=== PATIENT | female | born 1975 | race Hispanic/Latino ===

== ENCOUNTER 2017-11-19 15:09 | Inpatient (IN) | payer MEDICAID ==
--- NOTE | 2017-11-19 17:41 | C.PDOC ---
History Of Present Illness 42 y/o female presents to the ED requesting detox for heroin. Admits she usually sniffs 10-15 bags per day. Last use was 4:30am today. She denies any other drug use. Patient smokes 1-1.5 PPD of cigarettes. Also reports swelling in both legs, but admits to not taking her diuretic for over 1 week. Time Seen by Provider: 11/19/17 16:31 Chief Complaint (Nursing): Substance Abuse History Per: Patient History/Exam Limitations: no limitations Onset/Duration Of Symptoms: Days Current Symptoms Are (Timing): Still Present Suicide/Self Injury Attempted (Context): None Modifying Factor(s): Other (Heroin) Past Medical History Reviewed: Historical Data, Nursing Documentation, Vital Signs Vital Signs: Last Vital Signs Temp 98.3 F 11/19/17 19:17 Pulse 66 11/19/17 19:17 Resp 18 11/19/17 19:17 BP 130/92 H 11/19/17 19:17 Pulse Ox 99 11/19/17 19:50 - Medical History PMH: Asthma, Depression, Hypothyroidism Family History: States: No Known Family Hx - Social History Hx Alcohol Use: No Hx Substance Use: Yes - Immunization History Hx Tetanus Toxoid Vaccination: Yes Hx Influenza Vaccination: Yes Hx Pneumococcal Vaccination: No Review Of Systems Except As Marked, All Systems Reviewed And Found Negative. Constitutional: Negative for: Fever, Other (tremors) Respiratory: Negative for: Shortness of Breath Gastrointestinal: Negative for: Nausea, Vomiting Psych: Positive for: Other (substance abuse). Negative for: Suicidal ideation ( or homicidal ideation) Physical Exam - Physical Exam Appears: Non-toxic, No Acute Distress, Other (Morbidly obese) Skin: Normal Color, Warm, No Rash Head: Atraumatic, Normacephalic Eye(s): bilateral: Normal Inspection Oral Mucosa: Moist Neck: Normal ROM, Supple Chest: Symmetrical Cardiovascular: Rhythm Regular, No Murmur Respiratory: No Accessory Muscle Use, Other (coarse breath sounds bilaterally with good air entry) Gastrointestinal/Abdominal: Soft, No Tenderness, No Distention Extremity: Normal ROM, No Calf Tenderness, Capillary Refill (< 2 sec), No Deformity, Swelling (1+ lower extremity edema bilaterally) Pulses: Left Dorsalis Pedis: Normal, Right Dorsalis Pedis: Normal Neurological/Psych: Oriented x3, Normal Speech, Normal Cranial Nerves, Other ( No focal deficits) Gait: Steady ED Course And Treatment - Laboratory Results Result Diagrams: 11/19/17 17:44 11/19/17 17:44 O2 Sat by Pulse Oximetry: 99 (RA) Pulse Ox Interpretation: Normal Medical Decision Making Medical Decision Making: Impression: 42 year old with heroin abuse, prescreened for detox Plan: --CBC --CMP --Alcohol serum --Urine drug screen --Urine HCG --Urinalysis --Motrin 600 mg PO dairy farmworker notified of patient's case, will assist with arranging detox bed placement. 7:00pm - Patient is medically cleared. Discussed with passementerie worker, Dr. Chang accepts patient for detox admission. Disposition Discussed With : Agustin Chang Doctor Will See Patient In The: Hospital Counseled Patient/Family Regarding: Diagnosis - Disposition Disposition: HOSPITALIZED Disposition Time: 18:00 Condition: STABLE - POA Present On Arrival: None - Clinical Impression Clinical Impression: Drug dependence - Scribe Statement The provider has reviewed the documentation as recorded by the Scribe (Dagmar Hannon) Provider Attestation: All medical record entries made by the Scribe were at my direction and personally dictated by me. I have reviewed the chart and agree that the record accurately reflects my personal performance of the history, physical exam, medical decision making, and the department course for this patient. I have also personally directed, reviewed, and agree with the discharge instructions and disposition.
[2017-11-19 17:50] LABS: BASO # 0.1 K/uL (0.0-0.2); BASO % 0.7 % (0.0-2.0); EOS # 0.4 K/uL (0.0-0.7); EOS % 3.2 % (0.0-4.0); HEMOGLOBIN 14.1 g/dL (11.0-16.0); LYMPH # 2.6 K/uL (1.0-4.3); LYMPH % 22.9 % (20.0-40.0); MEAN CELL VOLUME 83.6 fL (81.0-99.0); MEAN CORPUSCULAR HEMOGLOBIN 28.2 pg (27.0-31.0); MEAN CORPUSCULAR HGB CONC 33.8 g/dL (33.0-37.0); MEAN PLATELET VOLUME 7.7 fL (7.2-11.7); MONO # 0.7 K/uL (0.0-0.8); MONO % 5.8 % (0.0-10.0); NEUT # 7.8 K/uL (1.8-7.0); NEUT % 67.4 % (50.0-75.0); NRBC % 0.2 % (0.0-2.0); RBC 4.98 Mil/uL (3.80-5.20); RED CELL DISTRIBUTION WIDTH 15.7 % (11.5-14.5); WHITE BLOOD COUNT 11.5 K/uL (4.8-10.8)
[2017-11-19 18:01] LABS: HCG,QUALITATIVE URINE NEGATIVE (NEGATIVE)
[2017-11-19 18:10] LABS: ALB/GLOB RATIO 1.3 (1.0-2.1); BLOOD UREA NITROGEN 9 mg/dL (7-17); CALCIUM 8.3 mg/dl (8.6-10.4); GFR AFRICAN-AMERICAN > 60; GFR NON-AFRICAN AMERICAN > 60
[2017-11-19 18:11] LABS: ALT/SGPT 32 U/L (9-52); AST/SGOT 16 U/L (14-36)
[2017-11-19 18:15] LABS: BARBITURATES, UR NEGATIVE (NEGATIVE); BENZODIAZEPINES, UR NEGATIVE (NEGATIVE); OPIATES, UR POSITIVE (NEGATIVE); PHENCYCLIDINE, UR NEGATIVE (NEGATIVE)
[2017-11-19 18:30] LABS: PH,URINE 5.5 (5.0-8.0); URINE BILIRUBIN NEGATIVE (NEGATIVE); URINE BLOOD NEGATIVE (NEGATIVE); URINE CLARITY CLEAR (Clear); URINE COLOR YELLOW (YELLOW); URINE GLUCOSE (UA) NEGATIVE (Normal); URINE LEUKOCYTE ESTERASE NEGATIVE Leu/uL (Negative); URINE PROTEIN NEGATIVE (NEGATIVE); URINE UROBILINOGEN N mg/dL (0.2-1.0)
--- NOTE | 2017-11-19 19:08 | PCM.BM ---
Treatment Plan Problems - Problems identified on initial assessmt potential for opiate withdrawal Date Initiated: 11/19/17 Time Initiated: 19:08 Status: Active Treatment assets and liabiliti Patient Liabilities: substance abuse, medical problems - Milieu Protocol Maintain good personal hygiene: daily Encourage regular showers, daily Remind patient to perform daily oral care, daily Assist patient to perform ADL's Conduct patient checks and document Observation sheet: Q15 minutes Maintain personal safety: every shift Educate patient to report safety concerns to staff, every shift Monitor environment for contraband/sharps Medication safety: Monitor for expected outcome, potential side effects: every shift, Assess barriers to learning: every shift, Assess readiness for medication education: every shift
--- NOTE | 2017-11-20 09:42 | PCM.PSYCH ---
Initial Psychiatric Evaluation - Initial Psychiatric Evaluation Type of Admission: Voluntary Legal Status: Capacity Chief Complaint (in patient's own words): "I relapsed" History of Present Illness and Precipitating Events: The patient is seen and chart reviewed, case discussed. This is a 42-year-old female, single with 3 children 2 of them adults , unemployed, living with her boyfriend and son. She reports using 10 bags intranasal heroin again. She says she relapsed 1-2 weeks after she left our unit She had been clean for 3-1/2 years max. Her first use was when she was 21 years old. She used cocaine in the past IV but clean for "many years." Denies alcohol, marijuana and other drugs. However, she smokes 1.5 pack per day cigarettes. She used Suboxone for an methadone from the streets. This is her third detox. She says she was in rehabilitation once at [facility] in 2010. She has anxiety and depressive sxs, no SI. Past psych history: Denies Medical history: Hypertension, diabetes?, Asthma and obesity, hepatitis C ( treated) Family psych history: Her father used cocaine and brother used heroin. Current Medications: Active Medications Generic Name Dose Route Start Last Admin Trade Name Freq PRN Reason Stop Dose Admin Clonidine HCl 0.1 mg 11/19/17 21:58 11/19/17 22:46 Catapres PO 0.1 mg Q8 PRN Administration COWS Score More or Equal to 5 Hydroxyzine HCl 25 mg 11/19/17 23:41 11/19/17 23:47 Atarax PO 25 mg Q6 PRN Administration Anxiety Ibuprofen 600 mg 11/20/17 06:13 Motrin Tab PO Q6 PRN Pain, moderate (4-7) Loperamide HCl 2 mg 11/19/17 22:24 Imodium PO Q8 PRN Diarrhea Methadone HCl 0 mg 11/20/17 10:00 11/20/17 09:32 Methadone PO 11/24/17 09:59 15 mg Q24H JUVENAL Administration Taper Nicotine 1 patch 11/20/17 10:00 11/20/17 09:32 Nicoderm Cq TD 1 patch DAILY JUVENAL Administration Ondansetron HCl 4 mg 11/19/17 22:24 Zofran Tab PO Q8 PRN Nausea/Vomiting Past Psychiatric History - Past Psychiatric History Previous Treatment History: None Pertinent Medical Hx (Current Medical&Sleep Prob, Allergies): Allergies Allergy/AdvReac Type Severity Reaction Status Date / Time No Known Allergies Allergy Verified 11/19/17 15:29 Furosemide [Lasix] 40 mg PO DAILY 11/19/17 Gabapentin 300 mg PO TID 11/19/17 Levothyroxine [Synthroid] 150 mcg PO DAILY 11/19/17 Omeprazole 40 mg PO DAILY 11/19/17 Pentoxifylline 400 mg PO TID 11/19/17 Sertraline [Zoloft] 25 mg PO DAILY 11/19/17 Review of Systems - Neurological Neurological: Tremor - Psychiatric Psychiatric: Abnormal Sleep Pattern, Anxiety, Depression, Difficulty Concentrating, Irritability. absent: Homicidal Ideation, Suicidal Ideation Mental Status Examination - Personal Presentation Personal Presentation: Looks stated age - Affect Affect: Constricted - Motor Activity Motor Activity: Calm - Reliability in Providing Information Reliability in Providing Information: Good - Speech Speech: Organized - Mood Mood: Depressed, Anxious - Formal Thought Process Formal Thought Process: No Impairment - Cognitive Functions Orientation: Person, Place, Situation, Time Sensorium: Alert Attention/Concentration: Attentive Estimate of Intelligence: Average Judgement: Intact, as evidence by: Insight regarding need for hospitalization Memory: Recent intact, as evidence by: Ability to recall events of the day, Remote intact, as evidenced by: Abilit to recall sig. life events - Risk Risk: Withdrawal, Diminished functioning - Strength & Assets Inventory Strength & Assets Inventory: Cooperative - Limitations Limitations: Living alone DSM 5 DX - DSM 5 DSM 5 Diagnosis: Opioid withdrawal Opioid use disorder, severe Depressive d/o - unspecified Tobacco use d/o - severe - Recommended/Plan of Treatment Treatment Recommendations and Plan of Treatment: Methadone detox Zoloft for depression As needed medications Gabapentin for augmentation and anxiety All risks, benefits and alternatives of medications, including no medications, discussed and the patient understood and agreed. Attend groups and activities Supportive therapy and psychoeducation [place] for abstinence CBT for relapse prevention Encourage MAT Refer to rehab or IOP Attend self-help groups as well VT for smoking cessation and patch if needed 34 min Projected ELOS: 4-5 days Prognosis: Good w treatment - Smoking Cessation Smoking Cessation Initiated: Yes
[2017-11-20] MEDS ORDERED: Pantoprazole 20 mg EC Tab PO SCH (10:00)
[2017-11-20] MEDS: Levothyroxine 150 MCG TAB PO SCH (10:30)
[2017-11-20] MEDS: Pantoprazole 20 mg EC Tab PO SCH (10:31)
[2017-11-21] MEDS: Levothyroxine 150 MCG TAB PO SCH (06:45)
[2017-11-21] MEDS: Pantoprazole 20 mg EC Tab PO SCH (09:20)
--- NOTE | 2017-11-21 23:39 | PCM.PYCHPN ---
Psychiatric Progress Note - Psychiatric Progress Note Patient seen today, length of contact: 15 min Patient Chief Complaint: I am still withdrawing.' Problems Identified/Issues Discussed: Patient seen and evaluated, chart reviewed and discussed with the nurse. She reports some improvement in her withdrawal symptoms but still reports anxiety, cramps and sweats. She reports of left leg swelling. Sh denies any AVH or any paranoia. Patient is compliant with medications and denies any side effects. Symptoms are improving but needs more time to stabilize. Support and psychoeducation given. Medication Change: Yes (methadone taper) Medical Record Reviewed: Yes Mental Status Examination - Cognitive Function Orientation: Person, Place, Situation, Time Memory: Intact Attention: WNL Concentration: Poor Association: WNL Fund of Knowledge: Poor - Mood Mood: Depressed, Anxious - Affect Affect: Constricted - Speech Speech: Soft - Formal Thought Process Formal Thought Process: No Impairment - Suicidal Ideation Suicidal Ideation: No - Homicidal Ideation Homicidal Ideation: No Goal/Treatment Plan - Goal/Treatment Plan Need for Continued Stay: Severe depression anxiety, Severe functional impairment Progress Toward Problem(s) and Goals/Treatment Plan: Opioid withdrawal Opioid use disorder, severe Depressive d/o - unspecified Tobacco use d/o - severe Methadone detox Zoloft for depression As needed medications Gabapentin for augmentation and anxiety All risks, benefits and alternatives of medications, including no medications, discussed and the patient understood and agreed. Attend groups and activities Supportive therapy and psychoeducation [place] for abstinence CBT for relapse prevention Encourage MAT Refer to rehab or IOP Attend self-help groups as well [place] for smoking cessation and patch if needed IM consulted for left leg swelling
[2017-11-22] MEDS: Levothyroxine 150 MCG TAB PO SCH (06:01)
[2017-11-22 08:56] LABS: BASO # 0.1 K/uL (0.0-0.2); BASO % 0.7 % (0.0-2.0); EOS # 0.4 K/uL (0.0-0.7); EOS % 4.1 % (0.0-4.0); LYMPH # 2.2 K/uL (1.0-4.3); LYMPH % 24.6 % (20.0-40.0); MEAN CORPUSCULAR HEMOGLOBIN 28.3 pg (27.0-31.0); MEAN CORPUSCULAR HGB CONC 33.7 g/dL (33.0-37.0); MEAN PLATELET VOLUME 7.7 fL (7.2-11.7); MONO # 0.6 K/uL (0.0-0.8); MONO % 6.6 % (0.0-10.0); NEUT # 5.7 K/uL (1.8-7.0); NRBC % 0.2 % (0.0-2.0); RBC 4.92 Mil/uL (3.80-5.20); RED CELL DISTRIBUTION WIDTH 15.5 % (11.5-14.5); WHITE BLOOD COUNT 8.9 K/uL (4.8-10.8)
[2017-11-22 09:11] LABS: ALB/GLOB RATIO 1.2 (1.0-2.1); ALBUMIN 3.8 g/dL (3.5-5.0); ALT/SGPT 27 U/L (9-52); AST/SGOT 14 U/L (14-36); BLOOD UREA NITROGEN 8 mg/dL (7-17); CALCIUM 9.2 mg/dl (8.6-10.4); GFR AFRICAN-AMERICAN > 60; GFR NON-AFRICAN AMERICAN > 60
[2017-11-22] MEDS: Pantoprazole 20 mg EC Tab PO SCH (09:26)
--- NOTE | 2017-11-22 19:46 | CON ---
Copied To: Leroy Harris DO Attending MD: Leroy Harris DO DATE: 11/22/2017 HISTORY OF PRESENT ILLNESS: I was called to the detox unit to see her. She is a 42-year-old white female who I know very well who was requested to detox from heroin. She was sniffing 10 to 15 bags per day, last was 4:30 the other day. She states she smokes 1 to 1-1/2 packs of cigarettes a day. She has also swelling on both her legs. She is also not taking her diuretics for about a week plus now. She is very noncompliant. She is also very morbidly obese. She has depression, asthma, and hypothyroidism. She is also looking to get a surgery, a bypass surgery, so she could lose weight, gastric bypass. She has substance abuse. Her legs have been in pain. There is some test pending for legs. Venous Doppler are pending. She is seen in bed, alert, comfortable, leg pain is persisting, particularly on both lower extremities. She walks okay. No chest pain, no shortness of breath. She wants to get off of heroin. No acute vision or hearing changes, no sore throat, no chest pain, no palpitations, no shortness of breath or cough. No abdominal pain, nausea, or vomiting at this time. Extremities are a little bit achy. She is very swollen in her arms and legs. When questioned how long she has been on her Lasix, said she just started today for the first dose. FAMILY HISTORY: She has hypertension and diabetes in the family. SOCIAL HISTORY: No alcohol, lots of substance abuse. She smokes cigarettes. PHYSICAL EXAMINATION: VITAL SIGNS: She has a 98.3 temp, 66 pulse, 18 respiratory rate, 130/92 blood pressure, 99% O2 sat on room air. HEENT: Head is atraumatic, normocephalic. Extraocular muscles are intact. Throat is moist. SKIN: Warm and dry. Poor turgor. No rashes or ulcers appreciated. HEART: Regular rate. LUNGS: Decreased breath sounds. Clear to auscultation. No wheezes, no rhonchi, no rales at this time. ABDOMEN: Morbidly, morbidly obese and nontender. Positive bowel sounds. No guarding, no rebound. No CVA tenderness. EXTREMITIES: +2 to 3 over 4 pitting edema in bilateral lower extremities, and both her arms are puffy. Definitely, she has not been on her water pill for over a week. NEUROLOGIC: She is alert and oriented x 3. Speech is normal. Cranial nerves are intact, II through XII. She is for the most part medically doing quite well and detoxing from heroin that I could see. She has some test done. She has positive opiates in her urine drug screen. Urine is clean. She is not . Sodium 136, potassium 4.2, BUN 9, creatinine 0.4 sugar 129, calcium 8.3, total bili 0.3, AST is 16, ALT is 32, alk phos 91, total protein 7.2, albumin is 4, globulin 3.2. D-dimer less than 200. She has 11.5 white count, 14.1 hemoglobin, 41.7 hematocrit, with 372,000 platelets. There are electrocardiogram and duplex of the lower extremity pending. She is being seen by Psychiatry. MEDICATIONS: She is currently on Atarax, Catapres, Imodium, Lasix, methadone, Motrin, Neurontin, Nicoderm patch, pentoxifylline, Protonix, Synthroid, Zofran, and Zoloft. ASSESSMENT AND PLAN: We will continue aggressive treatment and care, on detoxification. We will check her legs for venous Doppler. She was very swollen with congestive heart failure, opioid intoxication and abuse, leg pain, she is a smoker, hypothyroid, and asthma and we will follow. We are trying to detox from heroin with leg pain. eLroy Harris DO MTDD
--- NOTE | 2017-11-22 20:01 | PCM.PYCHPN ---
Psychiatric Progress Note - Psychiatric Progress Note Patient seen today, length of contact: 15 min Patient Chief Complaint: I'm feeling much better. Problems Identified/Issues Discussed: Patient seen, chart reviewed, case discussed with the staff. Issues related to illness and treatment were discussed with the patient and staff. Reported compliant with treatment with no adverse affects. Tolerating treatment very well. Calm and cooperative. Mood reported as good. Affect appropriate. Aftercare discussed with the patient. Patient will go to [facility] and also will attend AA meetings after discharge from the hospital. Patient was awake, alert and oriented 3. Denied any delusions, auditory or visual hallucinations, suicidal ideations or homicidal ideations at the time of evaluation. Medical Problems: Diabetes mellitus Hypertension Asthma Hepatitis C Diagnostic Results: Reviewed DSM 5 Symptoms Update: Improving with treatment. Medication Change: No Medical Record Reviewed: Yes Mental Status Examination - Cognitive Function Orientation: Person, Place, Situation, Time Memory: Intact Attention: WNL Concentration: WNL Association: WNL Fund of Knowledge: WN Decription of patient's judgement and insights: Fair - Mood Mood: Neutral - Affect Affect: Other (Appropriate) - Speech Speech: Soft - Formal Thought Process Formal Thought Process: No Impairment Psychotic Thoughts and Behaviors: None - Suicidal Ideation Suicidal Ideation: No - Homicidal Ideation Homicidal Ideation: No Goal/Treatment Plan - Goal/Treatment Plan Need for Continued Stay: Remain at risks for inpatient hospitalization, Discharge may exacerbated symptoms, Severe functional impairment Progress Toward Problem(s) and Goals/Treatment Plan: Patient education. Supportive therapy. CBT for relapse prevention. MRI for abstinence. Continue treatment as before. Patient will go to [facility] and also will attend AA meetings after discharge from the hospital. Estimated Date of D/C: 11/23/17 - Smoking Cessation Smoking Cessation Initiated: Yes
[2017-11-23] MEDS: Levothyroxine 150 MCG TAB PO SCH (06:18)
[2017-11-23 08:13] VITALS: PULSE 78; RESP 20; TEMP 98.3; O2SAT 94
[2017-11-23 09:31] VITALS: BP 127/84
[2017-11-23] MEDS: Pantoprazole 20 mg EC Tab PO SCH (09:32)
--- NOTE | 2017-11-23 14:28 | PN ---
Copied To: Leroy Harris DO Attending MD: Leroy Harris DO DATE: 11/23/2017 SUBJECTIVE: I saw her in the locked down unit for detoxification. She is eating breakfast. She is doing really well. She is eating very well. She has improved with her detox off of oxycodone. MEDICATIONS: She is on Atarax, Catapres, Imodium, Lasix, methadone 5 mg, Motrin, Neurontin, Nicoderm, Pentoxil, Protonix, Synthroid, Zofran, and Zoloft. PHYSICAL EXAMINATION: GENERAL: She is doing much better. She has improved. She is motivated. She wants to get off these bad drugs. VITAL SIGNS: Temp 98.3, pulse 78, blood pressure 121/84, respiratory rate 20, 94 to 96% O2 sat on room air. HEENT: Head is atraumatic and normocephalic. Throat is moist. NECK: Supple. HEART: Regular rate. LUNGS: Decreased breath sounds, but clear to auscultation. ABDOMEN: Morbidly obese, soft, nontender, positive bowel sounds. EXTREMITIES: No edema. LABORATORY DATA: She has 8.9 white count, 14 hemoglobin, 41.4 hematocrit with 342 platelets. Sodium 140, potassium 4.5, BUN is 8, creatinine 0.5, GFR is greater than 60, sugar is 126, calcium is 9.2, phosphorus 3.7, magnesium 1.9, total bili is 0.3, AST is 14, ALT is 27, alk phos 83, total protein 7, albumin is 3.8. Urine screen toxicology showed positive for opiates. ASSESSMENT AND PLAN: I discussed with the psychiatric nurse. She will be discharged today. I will follow up this week in the office. I am very happy with her motivation to get off these bad drugs and she is here for detox from opiates. Leroy Harris DO
--- NOTE | 2017-11-23 15:55 | VASCLAB ---
Date of service: 11/21/2017 PROCEDURE: Lower Extremity Venous Duplex Exam. HISTORY: lower extremity swelling, r/o DVT PRIORS: None. TECHNIQUE: Bilateral common femoral, femoral, popliteal and posterior tibial, peroneal and great saphenous veins were evaluated. Flow was assessed with color Doppler, compressibility, assessment of phasic flow and augmentation response. Report prepared by Addison Noland, ANN MARIE, RVT FINDINGS: RIGHT: 1. Common Femoral Vein: 1.1. Compressibility - Fully compressible: Thrombus - None : Flow - Phasic: Augmentation -Normal: Reflux - None. 2. Femoral Vein: 2.1. Compressibility - Fully compressible: Thrombus - None : Flow - Phasic: Augmentation -Normal: Reflux - None. 3. Popliteal Vein: 3.1. Compressibility - Fully compressible: Thrombus - None : Flow - Phasic: Augmentation -Normal: Reflux - None. 4. Posterior Tibial Vein: 4.1. Not visualized 5. Peroneal Vein: 5.1. Not visualized 6. Great Saphenous Vein: 6.1. Compressibility - Fully compressible: Thrombus - None: Flow - Phasic: Augmentation - Normal: Reflux - None. LEFT: 1. Common Femoral Vein: 1.1. Compressibility - Fully compressible: Thrombus - None: Flow - Phasic: Augmentation -Normal: Reflux - None. 2. Femoral Vein: 2.1. Compressibility - Fully compressible: Thrombus - None: Flow - Phasic: Augmentation -Normal: Reflux - None. 3. Popliteal Vein: 3.1. Compressibility - Fully compressible: Thrombus - None : Flow - Phasic: Augmentation -Normal: Reflux - None. 4. Posterior Tibial Vein: 4.1. Not visualized 5. Peroneal Vein: 5.1. Not visualized 6. Great Saphenous Vein: 6.1. Compressibility - Fully compressible: Thrombus - None: Flow - Phasic: Augmentation - Normal: Reflux - None. OTHER FINDINGS: Due to swelling in the calves, bilateral peroneal and posterior tibial vein were not visualized. IMPRESSION: Right: No evidence of deep or superficial vein thrombosis of the right lower extremity. Normal valve function noted of the right side. Left: No evidence of deep or superficial vein thrombosis of the left lower extremity. Normal valve function noted of the left side.
--- NOTE | 2017-11-23 17:58 | PCM.PYCHDC ---
Mental Status Examination - Mental Status Examination Orientation: Person, Place, Situation, Time Memory: Intact Mood: Neutral Affect: Other (Appropriate) Speech: Appropriate Attention: WNL Concentration: WNL Association: WNL Fund of Knowledge: WNL Formal Thought Process: No Impairment Description of patient's judgement and insight: Fair Psychotic Thoughts and Behaviors: None Suicidal Ideation: No Current Homicidal Ideation?: No Discharge Summary - Discharge Note Reason for Hospitalization: Opiate use disorder severe Major depressive disorder unspecified Laboratory Data: Reviewed Consultations:: List each consultation separately and include: 1. Reason for request. 2. Findings. 3. Follow-up Summary of Hospital Course include:: 1. Description of specific treatment plan utilized for patients during their course of treatmen. 2. Summarize the time- course for resolution of acute symptoms and/or regressed behaviors. 3. Describe issues identified and worked on during hospitalization. 4. Describe medication utilized. 5. Describe medical problems identified and treated. 6. Reassessment of suicide risk Summary of Hospital Course: The patient is seen and chart reviewed, case discussed. This is a 42-year-old female, single with 3 children 2 of them adults , unemployed, living with her boyfriend and son. She reports using 10 bags intranasal heroin again. She says she relapsed 1-2 weeks after she left our unit She had been clean for 3-1/2 years max. Her first use was when she was 21 years old. She used cocaine in the past IV but clean for "many years." Denies alcohol, marijuana and other drugs. However, she smokes 1.5 pack per day cigarettes. She used Suboxone for an methadone from the streets. This is her third detox. She says she was in rehabilitation once at [facility] in 2010. She has anxiety and depressive sxs, no SI. Past psych history: Denies Medical history: Hypertension, diabetes?, Asthma and obesity, hepatitis C ( treated) During her stay in the hospital patient was started on methadone taper for opiate withdrawal symptoms. She was also started on sertraline and other when necessary medications. Patient was attending groups on the unit. With the above intervention and treatment patient started feeling better. Today patient was very stable and ready for discharge. At the time of evaluation and discharge patient was awake alert oriented 3, had no delusions, no auditory or visual hallucinations, no suicidal ideations or homicidal ideations. Patient was discharged in a stable condition. Patient will go to [facility] and also will attend AA meetings after discharge from the hospital. - Final Diagnosis (DSM 5) Condition upon Discharge: STABLE Disposition: HOME/ ROUTINE Follow-up Treatment Plan: Patient will go to [facility] and also will attend AA meetings after discharge from the hospital. Prescriptions/Medication Reconciliation: Gabapentin [Neurontin] 300 mg PO TID #90 cap Gabapentin 300 mg PO TID #90 capsule Sertraline [Zoloft] 50 mg PO HS #30 tab Sertraline [Zoloft] 50 mg PO DAILY #30 tab - Smoking Cessation Smoking Cessation Medication prescribed: No - Antipsychotic Medications Pt discharged on 2 or more routine antipsychotic medications: No
--- NOTE | 2017-11-25 17:09 | CARD ---
APPROVED REPORT Date of service: 11/21/2017 EKG Measurement Heart [id number] <Conclusion> Normal sinus rhythm Low voltage QRS Borderline ECG
== END 2017-11-23 10:15 | disposition home or self-care (01) | DRG 744 ==
LOC: C.ER 15:09 → C.7D 19:02
PROVIDERS: ADMIT Psychiatry & Neurology Psychiatry; ATTEND Psychiatry & Neurology Psychiatry
PROC: HZ2ZZZZ Detoxification Services for Substance Abuse Treatment (ICD-10-PCS; principal; 2017-11-19)
PROC: HZ90ZZZ Pharmacotherapy for Substance Abuse Treatment, Nicotine Replacement (ICD-10-PCS; 2017-11-19)
PROC: GZ3ZZZZ Medication Management (ICD-10-PCS; 2017-11-19)
PROC: HZ59ZZZ Individual Psychotherapy for Substance Abuse Treatment, Supportive (ICD-10-PCS; 2017-11-19)
PROC: HZ46ZZZ Group Counseling for Substance Abuse Treatment, Psychoeducation (ICD-10-PCS; 2017-11-19)
PROC: GZHZZZZ Group Psychotherapy (ICD-10-PCS; 2017-11-19)
DX: F11.23 Opioid dependence with withdrawal (principal); F32.9 Major depressive disorder, single episode, unspecified; F41.9 Anxiety disorder, unspecified; F17.210 Nicotine dependence, cigarettes, uncomplicated; E11.9 Type 2 diabetes mellitus without complications; I11.0 Hypertensive heart disease with heart failure; I50.9 Heart failure, unspecified; B19.20 Unspecified viral hepatitis C without hepatic coma; E03.9 Hypothyroidism, unspecified; J45.909 Unspecified asthma, uncomplicated; E66.01 Morbid (severe) obesity due to excess calories; Z68.43 Body mass index [BMI] 50.0-59.9, adult; Z91.19 Patient's noncompliance with other medical treatment and regimen; Z98.84 Bariatric surgery status